=== PATIENT | male | born 2000 | race American Indian/Alaskan Native ===

== ENCOUNTER 2019-06-01 16:09 | Emergency (ER) | payer SELFPAY ==
[2019-06-01 16:24] VITALS: BP 147/49
--- NOTE | 2019-06-01 16:24 | Event Note ---
ED Screening Note ED Screening Note: 18 yo male with right leg pain after falling off ramp while skateboarding. This initial assessment/diagnostic orders/clinical plan/treatment(s) is/are subject to change based on patients health status, clinical progression and re- assessment by fellow clinical providers in the ED. Further treatment and workup at subsequent clinical providers discretion. Patient/guardian urged not to elope from the ED as their condition may be serious if not clinically assessed and managed. Initial orders include: xr tib fib
--- NOTE | 2019-06-01 17:03 | XRay Report ---
. RIGHT FORELEG 4 VIEWS INDICATION / CLINICAL INFORMATION: fall off skateboard ramp. COMPARISON: None available. FINDINGS: There is a comminuted moderately displaced fracture involving the proximal fibular shaft. A comminute d elongated spiral mildly displaced fracture is seen within the middle third of the right tibia shaft . Signer Name: Ayush Marie MD Signed: 06/01/2019 4:59 PM Workstation Name: [id number]
[2019-06-01] MEDS ORDERED: ONDANSETRON 4 MG/2 ML INJ IV ONE (17:39)
[2019-06-01] MEDS ORDERED: MORPHINE 4 MG/1 ML INJ IV ONE (17:39)
--- NOTE | 2019-06-01 17:57 | Emergency Department Report ---
<THOMAS STEVENS - Last Filed: 06/01/19 18:17> ED Lower Extremity HPI - General Chief Complaint: Extremity Injury, Lower Stated Complaint: FALL INJURY/ LOWER LEG PAIN Time Seen by Provider: 06/01/19 16:22 - Related Data Previous Rx's Medication Instructions Recorded Last Taken Type Ibuprofen [Motrin] 800 mg PO Q8HR #40 tablet 06/01/19 Unknown Rx Oxycodone HCl/Acetaminophen 1 each PO Q6HR PRN #15 tablet 06/01/19 Unknown Rx [Percocet 10/325 mg] Allergies Allergy/AdvReac Type Severity Reaction Status Date / Time APPLES Allergy Hives Uncoded 06/01/19 16:10 ED Past Medical Hx - Medications Home Medications: Home Medications Medication Instructions Recorded Confirmed Last Taken Type Ibuprofen [Motrin] 800 mg PO Q8HR #40 tablet 06/01/19 Unknown Rx Oxycodone HCl/Acetaminophen 1 each PO Q6HR PRN #15 tablet 06/01/19 Unknown Rx [Percocet 10/325 mg] ED Course - Consultations Consultation #1: 06/01/19 18:17 case d/w Dr Ny ortho, rec long leg splint. Follow up with ortho, pt will need surgery. ED Disposition Clinical Impression: Tibia/fibula fracture, Closed fracture of tibia and fibula Disposition: DC- TO HOME OR SELFCARE Condition: Stable Instructions: Leg Fracture (ED) Additional Instructions: Make sure to follow up with the primary care physician as discussed. Make sure you follow-up with orthopedic doctor in 1 to 3 days. Take all your medications as you've been prescribed. If you have any worsening symptoms or develop new symptoms please return to ED immediately. Prescriptions: Ibuprofen [Motrin] 800 mg PO Q8HR #40 tablet Oxycodone HCl/Acetaminophen [Percocet 10/325 mg] 1 each PO Q6HR PRN #15 tablet PRN Reason: Pain Referrals: SETH NY MD [Staff Physician] - 06/04/19 (follow up with orthopedic doctor. Call office.) Forms: Work/School Release Form <REYNALDO WISEMAN - Last Filed: 06/01/19 18:34> ED Lower Extremity HPI - General Source: patient Mode of arrival: Wheelchair Limitations: Physical Limitation - History of Present Illness Initial Comments: This is a 18-year-old healthy looking female presents the ED complaining of right lower leg pain status post falling off her skateboard earlier today. Patient states that his right lower leg is hurting. Patient states that pain is worsened with movement. He denies any deformity,. Patient is unable to apply pressure on that foot. Patient denies any head or neck injury after incident. MD Complaint: leg injury Injury: Leg: Right Type of Injury: other (skateboarding fall) Severity: moderate Severity scale (0 -10): 8 Improves With: immobilization Worsens With: weight bearing, movement Context: fall Associated Symptoms: swelling, unable to bear weight. denies: numbness, tingling ED Review of Systems ROS: Stated complaint: FALL INJURY/ LOWER LEG PAIN Other details as noted in HPI Comment: All other systems reviewed and negative ED Past Medical Hx - Past Medical History Previous Medical History?: No - Surgical History Past Surgical History?: No - Social History Smoking Status: Never Smoker Substance Use Type: None ED Physical Exam - General Limitations: Physical Limitation General appearance: alert, in no apparent distress - Head Head exam: Present: atraumatic, normocephalic - Eye Eye exam: Present: normal appearance - ENT ENT exam: Present: mucous membranes moist - Neck Neck exam: Present: normal inspection - Respiratory Respiratory exam: Present: normal lung sounds bilaterally. Absent: respiratory distress - Cardiovascular Cardiovascular Exam: Present: regular rate, normal rhythm. Absent: systolic murmur, diastolic murmur, rubs, gallop - GI/Abdominal GI/Abdominal exam: Present: soft, normal bowel sounds - Rectal Rectal exam: Present: deferred - Extremities Exam Extremities exam: Present: normal inspection - Expanded Lower Extremity Exam Right Hip exam: Present: full ROM Upper Leg exam: Present: normal inspection Knee exam: Present: normal inspection, full ROM. Absent: tenderness, swelling, abrasion Lower Leg exam: Present: tenderness, swelling (To the thigh area). Absent: full ROM, laceration, ecchymosis, deformity Ankle exam: Present: normal inspection, full ROM. Absent: tenderness, swelling Foot/Toe exam: Present: normal inspection, full ROM. Absent: tenderness, swelling, abrasion Neuro vascular tendon exam: Present: no vascular compromise Gait: Positive: observed and limited by pain, unable to bear weight - Back Exam Back exam: Present: normal inspection - Neurological Exam Neurological exam: Present: alert, oriented X3, abnormal gait - Psychiatric Psychiatric exam: Present: normal affect, normal mood - Skin Skin exam: Present: warm, dry, intact, normal color. Absent: rash ED Course Vital Signs 06/01/19 06/01/19 16:22 17:51 Temperature 97.6 F Pulse Rate 79 Respiratory 20 16 Rate Blood Pressure 147/49 O2 Sat by Pulse 100 Oximetry ED Lower Extremity MDM - Radiology Data Radiology results: report reviewed, image reviewed INDICATION / CLINICAL INFORMATION: fall off skateboard ramp. COMPARISON: None available. FINDINGS: There is a comminuted moderately displaced fracture involving the proximal fibular shaft. A comminuted elongated spiral mildly displaced fracture is seen within the middle third of the right tibia shaft. Signer Name: Ayush Marie MD Signed: 06/01/2019 4:59 PM Workstation Name: [id number] Transcribed By: Dictated By: Ayush Marie MD Electronically Authenticated By: Ayush Marie MD Signed Date/Time: 06/01/19 385 - Medical Decision Making 18-year-old male presents with comminuted tibia and fibula fracture ED course: Pt received 4 mg of morphine and Zofran Right leg x-ray ordered. Right leg x-ray shows: See report above Discussed findings with patient. Nu Dr. Ny the orthopedic doctor was contacted and he agrees to plan to follow up outpatient on Tuesday. Discussed with patient to follow-up with Dr. Ny Tuesday. Film DVD given to patient at discharge. Patient put in a long leg posterior splint and crutches at discharge Post-splint evaluation: Capillary refill 2 seconds, patient able to wiggle fingers, neurovasculaly intact no loss of sensation. Discussed the patient and orthopedic follow-up in 2-3 days. Referrals given. Discussed with patient importance of him following up. Discussed the risk of tibial-fibular fractures could possibly lead to a blood clot, infection and acute compartment syndrome. Patient states he understands and will follow-up. Vital signs are normal patient is in no acute or respiratory distress. Patient states understanding all discussed complaint of follow-up. Critical care attestation.: If time is entered above; I have spent that time in minutes in the direct care of this critically ill patient, excluding procedure time. ED Disposition Is pt being admited?: No Does the pt Need Aspirin: No Time of Disposition: 18:30
== END 2019-06-01 19:19 | disposition home or self-care (01) ==
LOC: ED 16:09
DX: S82.201A Unspecified fracture of shaft of right tibia, initial encounter for closed fracture (principal); S82.401A Unspecified fracture of shaft of right fibula, initial encounter for closed fracture; Z91.018 Allergy to other foods; Z79.899 Other long term (current) drug therapy; W18.30XA Fall on same level, unspecified, initial encounter; Y93.51 Activity, roller skating (inline) and skateboarding; Y92.89 Other specified places as the place of occurrence of the external cause; Y99.8 Other external cause status
CPT/HCPCS: 29505; 73590; 96374; 96375; 99283; J2270; J2405

== ENCOUNTER 2019-09-05 11:29 | Outpatient (CLI) | payer OTHER ==
--- NOTE | 2019-09-05 13:12 | XRay Report ---
RIGHT TIBIA FIBULA HISTORY: Follow up fractures. COMPARISON: 06/01/2019 TECHNIQUE: 2 views of the right tibia and fibula were obtained. FINDINGS: Bones: Moderate diffuse osteopenia has developed. Mildly displaced comminuted fracture of the proxima l fibula with less obvious fracture lines and no change in position of fragments. Comminuted spiral f racture of the tibia with less apparent fracture lines and no change in position of fragments. Joint spaces: Maintained. Soft tissues: No significant abnormality. Additional findings: None. IMPRESSION: 1. Evidence of healing and no change in position of fracture fragments of the tibia and fibula. Signer Name: Jose Cali MD Signed: 09/05/2019 1:08 PM Workstation Name: [id number]
== END 2019-09-05 11:30 | disposition home or self-care (01) ==
LOC: XRAY 11:29
PROVIDERS: ATTEND Orthopaedic Surgery
DX: S82.831D Other fracture of upper and lower end of right fibula, subsequent encounter for closed fracture with routine healing (principal); S82.251D Displaced comminuted fracture of shaft of right tibia, subsequent encounter for closed fracture with routine healing; X58.XXXD Exposure to other specified factors, subsequent encounter